=== PATIENT | female | born 1945 | race Caucasian/White ===

== ENCOUNTER 2020-01-13 05:16 | Inpatient (IN) ==
[2020-01-13] MEDS ORDERED: VANCOMYCIN 1,000 MG VIAL ONE (06:09)
[2020-01-13] MEDS ORDERED: ceFAZolin 1,000 MG VIAL ONE (06:09)
[2020-01-13] MEDS ORDERED: TRANEXAMIC ACID 1,000 MG/10 ML VIAL ONE (06:24)
[2020-01-13] MEDS ORDERED: BACITRACIN OINT 0.9 GM PACK TOP ONE ×2 (06:24→06:25)
[2020-01-13] MEDS ORDERED: GABAPENTIN 400 MG CAPSULE PO ONE (06:36)
[2020-01-13] MEDS ORDERED: ACETAMINOPHEN 500 MG TABLET PO ONE (06:36)
[2020-01-13] MEDS ORDERED: ALBUTEROL 2.5 MG/3 ML NEB RESP TX ONE (06:36)
[2020-01-13] MEDS ORDERED: DIAZEPAM 5 MG TABLET PO ONE (06:36)
[2020-01-13] MEDS ORDERED: FAMOTIDINE 20 MG TABLET PO ONE (06:36)
[2020-01-13] MEDS ORDERED: LACTATED RINGERS 1,000 ML IV SCH (07:00)
[2020-01-13] MEDS ORDERED: DEXAMETHASONE 4 MG/1 ML VIAL ONE (07:34)
[2020-01-13] MEDS ORDERED: ROPIVACAINE 0.5% 30 ML VIAL ONE (07:34)
[2020-01-13] MEDS ORDERED: VANCOMYCIN INJ 1,000 MG in SODIUM CHLORIDE 0.9% 250 ML IV ONE (08:00)
[2020-01-13] MEDS ORDERED: ceFAZolin 1,000 MG in SYRINGE 1 EACH IV ONE (08:00)
[2020-01-13] MEDS ORDERED: ONDANSETRON 4 MG/2 ML VIAL IV PRN (09:05)
[2020-01-13] MEDS ORDERED: diphenhydrAMINE CAP 25 MG CAPSULE PO PRN (09:05)
[2020-01-13] MEDS ORDERED: ZALEPLON 5 MG CAPSULE PO PRN (09:05)
[2020-01-13] MEDS ORDERED: MORPHINE 4 MG/1 ML VIAL IV PRN ×2 (09:05)
[2020-01-13] MEDS ORDERED: DEXTROSE 50% 25 GM/50 ML VIAL IV PRN (09:07)
[2020-01-13] MEDS ORDERED: GLUCAGON 1 MG VIAL IM PRN (09:07)
[2020-01-13] MEDS ORDERED: LIDOCAINE 2% 5 ML VIAL ONE (10:21)
[2020-01-13] MEDS ORDERED: ONDANSETRON 4 MG/2 ML VIAL ONE (10:22)
[2020-01-13] MEDS ORDERED: PHENYLEPHRINE 1 MG/10 ML SYRINGE IV ONE (10:22)
[2020-01-13] MEDS ORDERED: MIDAZOLAM 2 MG/2 ML VIAL ONE (10:22)
[2020-01-13] MEDS ORDERED: SODIUM CHLORIDE 0.9% 250 ML IV ONE (10:22)
[2020-01-13] MEDS ORDERED: fentaNYL 100 MCG/2 ML VIAL ONE (10:22)
[2020-01-13] MEDS: LACTATED RINGERS 1,000 ML IV SCH (10:32)
[2020-01-13] MEDS: KETOROLAC 15 MG/1 ML VIAL IV SCH ×2 (12:41→18:00)
[2020-01-13] MEDS: ceFAZolin 1,000 MG in SYRINGE 1 EACH IV SCH ×2 (15:04→23:11)
[2020-01-13] MEDS: INSULIN LISPRO 100 UNIT/ML SUBCUT SCH ×3 (15:04→20:33)
[2020-01-13] MEDS: DOCUSATE SODIUM 100 MG CAPSULE PO SCH (20:34)
[2020-01-13] MEDS: MULTIVITAMIN (OCUVITE) TABLET PO SCH (20:34)
[2020-01-13] MEDS: INSULIN GLARGINE 100 UNIT/ML SUBCUT SCH (23:11)
[2020-01-14] MEDS: KETOROLAC 15 MG/1 ML VIAL IV SCH ×2 (01:58→07:17)
[2020-01-14] MEDS: LACTATED RINGERS 1,000 ML IV SCH ×2 (01:58→11:51)
[2020-01-14] MEDS: FONDAPARINUX 2.5 MG/0.5 ML SYRINGE SUBCUT SCH (05:20)
[2020-01-14 05:23] LABS: Basophils % 0.3 % (0.0-0.8); Hematocrit 33.3 VOL% (35.7-47.0); Hemoglobin 11.3 GM/DL (12.0-16.0); Immature Granulocytes % 0.5 %; Immature Granulocytes Absolute 0.05 #; Lymphocytes % 18.5 % (21.3-54.2); Mean Corpuscular HGB Conc 33.9 GM/DL (32-36); Mean Corpuscular Volume 95.1 FL (87-102); Mean Platelet Volume 10.3 FL (9.6-12.0); Monocytes % 9.9 % (1.7-12.7); Neutrophils % 70.8 % (38.7-73.9); Platelet Count 244 T/CUMM (130-400); Red Cell Distribution Width 13.7 % (9.3-17.3); White Blood Count 10.9 T/CUMM (4-12)
[2020-01-14 05:37] LABS: Calcium 9.2 MG/DL (8.5-10.1); Osmolality,Calculated 282.3 MOS/KG (273-304)
[2020-01-14] MEDS: INSULIN LISPRO 100 UNIT/ML SUBCUT SCH ×4 (07:22→21:33)
[2020-01-14] MEDS ORDERED: KETOROLAC 15 MG/1 ML VIAL IV SCH (07:30)
[2020-01-14] MEDS: MONTELUKAST 10 MG TABLET PO SCH (08:33)
[2020-01-14] MEDS: DOCUSATE SODIUM 100 MG CAPSULE PO SCH ×2 (08:33→21:32)
[2020-01-14] MEDS: MULTIVITAMIN (OCUVITE) TABLET PO SCH ×2 (08:33→21:32)
[2020-01-14] MEDS: amLODIPine 5 MG TABLET PO SCH (08:34)
[2020-01-14] MEDS: allopurinoL 100 MG TABLET PO SCH (08:34)
[2020-01-14] MEDS: PANTOPRAZOLE 40 MG TABLET PO SCH (08:34)
[2020-01-14] MEDS ORDERED: TUBERCULIN SKIN TEST 0.1 ML SYRINGE INTRADERM ONE (09:27)
[2020-01-14] MEDS: traMADol 50 MG TABLET PO SCH ×2 (17:20→21:32)
[2020-01-14] MEDS: INSULIN GLARGINE 100 UNIT/ML SUBCUT SCH (21:31)
[2020-01-14] MEDS: SIMVASTATIN 40 MG TABLET PO SCH (21:32)
[2020-01-15] MEDS: FONDAPARINUX 2.5 MG/0.5 ML SYRINGE SUBCUT SCH (05:13)
[2020-01-15 06:02] LABS: Basophils % 0.4 % (0.0-0.8); Eosinophils # 0.1 10*3/uL (0.0-0.87); Hematocrit 33.1 VOL% (35.7-47.0); Hemoglobin 10.9 GM/DL (12.0-16.0); Immature Granulocytes % 0.4 %; Immature Granulocytes Absolute 0.04 #; Lymphocytes # 2.3 10*3/uL (1.4-4.0); Lymphocytes % 20.7 % (21.3-54.2); Mean Corpuscular HGB Conc 32.9 GM/DL (32-36); Mean Corpuscular Volume 97.9 FL (87-102); Mean Platelet Volume 10.4 FL (9.6-12.0); Monocytes % 12.2 % (1.7-12.7); Neutrophils % 65.3 % (38.7-73.9); Platelet Count 234 T/CUMM (130-400); Red Blood Count 3.38 MC/CUMM (3.8-5.5); Red Cell Distribution Width 14.2 % (9.3-17.3); White Blood Count 11.3 T/CUMM (4-12)
[2020-01-15] MEDS: MULTIVITAMIN (OCUVITE) TABLET PO SCH ×2 (08:30→20:27)
[2020-01-15] MEDS: DOCUSATE SODIUM 100 MG CAPSULE PO SCH ×2 (08:30→20:26)
[2020-01-15] MEDS: allopurinoL 100 MG TABLET PO SCH (08:30)
[2020-01-15] MEDS: PANTOPRAZOLE 40 MG TABLET PO SCH (08:31)
[2020-01-15] MEDS: traMADol 50 MG TABLET PO SCH ×4 (08:31→20:35)
[2020-01-15] MEDS: MONTELUKAST 10 MG TABLET PO SCH (08:31)
[2020-01-15] MEDS: amLODIPine 5 MG TABLET PO SCH (08:31)
[2020-01-15] MEDS: INSULIN LISPRO 100 UNIT/ML SUBCUT SCH ×4 (08:32→20:28)
[2020-01-15] MEDS: MAGNESIUM HYDROXIDE SUSP 30 ML UDCUP PO PRN (14:48)
[2020-01-15] MEDS: SIMVASTATIN 40 MG TABLET PO SCH (20:27)
[2020-01-15] MEDS: INSULIN GLARGINE 100 UNIT/ML SUBCUT SCH (20:27)
[2020-01-16] MEDS: INSULIN LISPRO 100 UNIT/ML SUBCUT SCH ×2 (01:10→13:10)
[2020-01-16 05:58] LABS: Basophils % 0.4 % (0.0-0.8); Eosinophils # 0.1 10*3/uL (0.0-0.87); Eosinophils % 1.3 % (0.00-10.9); Hematocrit 32.7 VOL% (35.7-47.0); Hemoglobin 10.9 GM/DL (12.0-16.0); Immature Granulocytes % 0.4 %; Immature Granulocytes Absolute 0.04 #; Lymphocytes # 1.9 10*3/uL (1.4-4.0); Lymphocytes % 17.8 % (21.3-54.2); Mean Corpuscular HGB Conc 33.3 GM/DL (32-36); Mean Corpuscular Volume 97.3 FL (87-102); Mean Platelet Volume 10.6 FL (9.6-12.0); Monocytes % 12.5 % (1.7-12.7); Neutrophils % 67.6 % (38.7-73.9); Platelet Count 242 T/CUMM (130-400); Red Blood Count 3.36 MC/CUMM (3.8-5.5); Red Cell Distribution Width 13.9 % (9.3-17.3); White Blood Count 10.5 T/CUMM (4-12)
[2020-01-16] MEDS: FONDAPARINUX 2.5 MG/0.5 ML SYRINGE SUBCUT SCH (06:02)
[2020-01-16] MEDS: amLODIPine 5 MG TABLET PO SCH (08:45)
[2020-01-16] MEDS: DOCUSATE SODIUM 100 MG CAPSULE PO SCH (08:45)
[2020-01-16] MEDS: MULTIVITAMIN (OCUVITE) TABLET PO SCH (08:45)
[2020-01-16] MEDS: traMADol 50 MG TABLET PO SCH ×2 (08:46→13:00)
[2020-01-16] MEDS: PANTOPRAZOLE 40 MG TABLET PO SCH (08:46)
[2020-01-16] MEDS: MONTELUKAST 10 MG TABLET PO SCH (08:46)
[2020-01-16] MEDS: MAGNESIUM HYDROXIDE SUSP 30 ML UDCUP PO PRN (08:47)
[2020-01-16] MEDS: allopurinoL 100 MG TABLET PO SCH (08:47)
[2020-01-16] MEDS ORDERED: BISACODYL 10 MG SUPP RECTAL ONE (10:27)
[2020-01-16] MEDS ORDERED: SODIUM PHOSPHATE ENEMA 133 ML BOTTLE RECTAL ONE (11:29)
[2020-01-16 15:29] VITALS: BP 117/60
== END 2020-01-16 13:30 | disposition swing bed (61) | DRG 470 ==
LOC: N.OR 05:16 → N.SDSINP 05:18 → N.3E 11:40
PROVIDERS: ADMIT Orthopaedic Surgery; ATTEND Orthopaedic Surgery